=== PATIENT | male | born 1940 | race Asian ===

== ENCOUNTER 2016-04-30 14:11 | Observation (INO) | payer OTHER ==
[2016-04-30 14:25] VITALS: BMI 24.3
[2016-04-30] MEDS ORDERED: SODIUM CHLORIDE 1,000 ML IV STA (15:12)
[2016-04-30] MEDS ORDERED: morphine CARPU-JECT 4 MG/1 ML DISP.SYRIN IVPUSH ONE (15:12)
[2016-04-30] MEDS ORDERED: ONDANSETRON 4 MG/2 ML VIAL IVPUSH ONE (15:12)
[2016-04-30] MEDS ORDERED: morphine CARPU-JECT 4 MG/1 ML DISP.SYRIN ONE (15:23)
[2016-04-30] MEDS ORDERED: ONDANSETRON 4 MG/2 ML VIAL ONE (15:24)
[2016-04-30 15:29] LABS: BASOPHIL 0.2 % (0-2.0); EOSINOPHIL 0.5 % (0-4.5); MCH 30.5 pg (25.7-33.7); MCHC 32.9 g/dl (32.0-35.9); MEAN CELL VOLUME 92.7 fl (80-96); MEAN PLT VOLUME 8.9 fl (7.5-11.1); NEUTROPHILS 75.6 % (42.8-82.8); PLATELET COUNT 124 K/MM3 (134-434); RDW 13.6 % (11.9-15.9); WHITE BLOOD COUNT 4.4 K/mm3 (4.0-10.0)
[2016-04-30 15:58] LABS: ALBUMIN 3.4 g/dl (3.4-5.0); ANION GAP 9 (8-16); CO2 27 mmol/L (21-32); CREATININE 1.1 mg/dL (0.7-1.3); GLUCOSE,RANDOM 103 mg/dL (74-106); SGOT/AST 19 U/L (15-37); SGPT/ALT 24 U/L (12-78)
[2016-04-30 16:00] LABS: ALK PHOS 63 U/L (45-117); BILIRUBIN,TOTAL 0.9 mg/dL (0.2-1.0); TOT PROT 6.5 g/dl (6.4-8.2)
--- NOTE | 2016-04-30 16:02 | PDOC ---
History of Present Illness - General History Source: Patient Exam Limitations: No Limitations - History of Present Illness Initial Comments: 04/30/16 16:32 The patient is a 75 year old male with significant past medical history hypertension and BPH who presents to the emergency department with abdominal pain, nausea, and vomiting for 1 day. He also reports associated diarrhea. He denies any blood vomit or bloody stool. The patient states his epigastric pain is constant and sharp in nature, localized to the mid epigastric region. This pain does not radiate. The patient denies any alleviating factors. His symptoms started last night and are getting worse. He denies any sick contacts, recent travels, or recent abx use. The patient denies any chest pain or shortness of breath. He denies dysuria, hematuria, or frequency. He denies any fevers or chills. <Clara Raya - Last Filed: 04/30/16 16:32> <Osman Dykes - Last Filed: 04/30/16 18:36> - General Chief Complaint: Nausea/Vomiting Stated Complaint: (PCP SENT) VOMITING Time Seen by Provider: 04/30/16 14:58 Past History <Clara Raya - Last Filed: 04/30/16 16:32> - Past Medical History Cardiac Disorders: Yes - Psycho/Social/Smoking Cessation Hx Anxiety: No Suicidal Ideation: No Smoking History: Never smoked Hx Alcohol Use: No Drug/Substance Use Hx: No Substance Use Type: None <Osman Dykes - Last Filed: 04/30/16 18:36> - Past Medical History Allergies/Adverse Reactions: Allergies Allergy/AdvReac Type Severity Reaction Status Date / Time No Known Allergies Allergy Verified 04/30/16 14:25 Home Medications: Ambulatory Orders Dexlansoprazole [Dexilant] 60 mg PO DAILY 04/30/16 Review of Systems - Review of Systems Able to Perform ROS?: Yes Comments:: 04/30/16 16:32 GENERAL/CONSTITUTIONAL: No fever or chills. No weakness. HEAD, EYES, EARS, NOSE AND THROAT: No change in vision. No ear pain or discharge. No sore throat. CARDIOVASCULAR: No chest pain or shortness of breath. RESPIRATORY: No cough, wheezing, or hemoptysis. GASTROINTESTINAL: +Nausea, +vomiting, +diarrhea. No constipation. GENITOURINARY: No dysuria, frequency, or change in urination. MUSCULOSKELETAL: No joint or muscle swelling or pain. No neck or back pain. SKIN: No rash NEUROLOGIC: No headache, vertigo, loss of consciousness, or change in strength/ sensation. ENDOCRINE: No increased thirst. No abnormal weight change. HEMATOLOGIC/LYMPHATIC: No anemia, easy bleeding, or history of blood clots. ALLERGIC/IMMUNOLOGIC: No hives or skin allergy. <ElverClara - Last Filed: 04/30/16 16:32> *Physical Exam - Vital Signs Last Vital Signs Temp Pulse Resp BP Pulse Ox 97.7 F 65 20 125/75 97 04/30/16 14:21 04/30/16 14:21 04/30/16 14:21 04/30/16 14:21 04/30/16 14:21 - Physical Exam Comments: 04/30/16 16:32 GENERAL: Awake, alert, and fully oriented, in no acute distress HEAD: No signs of trauma EYES: PERRLA, EOMI, sclera anicteric, conjunctiva clear ENT: Auricles normal inspection, hearing grossly normal, nares patent, oropharynx clear without exudates. Moist mucosa NECK: Normal ROM, supple, no lymphadenopathy, JVD, or masses LUNGS: Breath sounds equal, clear to auscultation bilaterally. No wheezes, and no crackles HEART: Regular rate and rhythm, normal S1 and S2, no murmurs, rubs or gallops ABDOMEN: +Tenderness to palpation in the epigastric region, no guarding, no rebound. Soft, normoactive bowel sounds. No masses EXTREMITIES: Normal range of motion, no edema. No clubbing or cyanosis. No cords, erythema, or tenderness NEUROLOGICAL: Cranial nerves II through XII grossly intact. Normal speech, normal gait SKIN: Warm, Dry, normal turgor, no rashes or lesions noted. <ElverClara - Last Filed: 04/30/16 16:32> - Vital Signs Last Vital Signs Temp Pulse Resp BP Pulse Ox 97.7 F 65 20 125/75 97 04/30/16 14:21 04/30/16 14:21 04/30/16 14:21 04/30/16 14:21 04/30/16 14:21 <Osman Dykes - Last Filed: 04/30/16 18:36> ED Treatment Course - LABORATORY CBC & Chemistry Diagram: 04/30/16 15:00 04/30/16 15:00 - ADDITIONAL ORDERS Additional order review: Laboratory Results 04/30/16 04/30/16 15:00 15:00 INR 1.87 H Sodium 136 Potassium 4.0 Chloride 100 Carbon Dioxide 27 Anion Gap 9 BUN 22 H Creatinine 1.1 Creat Clearance w eGFR > 60 Random Glucose 103 Calcium 8.0 L Total Bilirubin 0.9 AST 19 ALT 24 Alkaline Phosphatase 63 Total Protein 6.5 Albumin 3.4 Lipase 67 L 04/30/16 15:00 RBC 4.63 MCV 92.7 MCHC 32.9 RDW 13.6 MPV 8.9 Neutrophils % 75.6 Lymphocytes % 14.0 Monocytes % 9.7 Eosinophils % 0.5 Basophils % 0.2 - Medications Given in the ED: ED Medications Discontinued Medications Generic Name Dose Route Start Last Admin Trade Name Freq PRN Reason Stop Dose Admin Sodium Chloride 1,000 mls @ 1,000 mls/hr 04/30/16 15:12 04/30/16 15:32 Normal Saline - IV 04/30/16 16:11 1,000 mls/hr ASDIR STA Administration Morphine Sulfate 4 mg 04/30/16 15:12 04/30/16 15:32 Morphine Injection - IVPUSH 04/30/16 15:13 4 mg ONCE ONE Administration Ondansetron HCl 8 mg 04/30/16 15:12 04/30/16 15:32 Zofran Injection IVPUSH 04/30/16 15:13 8 mg ONCE ONE Administration <Clara Raya - Last Filed: 04/30/16 16:32> - LABORATORY CBC & Chemistry Diagram: 04/30/16 15:00 04/30/16 15:00 - ADDITIONAL ORDERS Additional order review: 04/30/16 15:00 RBC 4.63 MCV 92.7 MCHC 32.9 RDW 13.6 MPV 8.9 Neutrophils % 75.6 Lymphocytes % 14.0 Monocytes % 9.7 Eosinophils % 0.5 Basophils % 0.2 - Medications Given in the ED: ED Medications Discontinued Medications Generic Name Dose Route Start Last Admin Trade Name Freq PRN Reason Stop Dose Admin Morphine Sulfate 4 mg 04/30/16 15:12 04/30/16 15:32 Morphine Injection - IVPUSH 02/01/17 15:13 4 mg ONCE ONE Administration Ondansetron HCl 8 mg 04/30/16 15:12 04/30/16 15:32 Zofran Injection IVPUSH 04/30/16 15:13 8 mg ONCE ONE Administration <Osman Dykes - Last Filed: 04/30/16 18:36> *DC/Admit/Observation/Transfer - Attestations Scribe Attestion: 04/30/16 16:32 Documentation prepared by Clara Raya, acting as biomedical specialist for Osman Dykes MD. <Clara Raya - Last Filed: 04/30/16 16:32> - Discharge Dispostion Admit: Yes - Attestations Physician Attestion: 04/30/16 15:59 I, Dr. Osman Dykes, attest that this document has been prepared under my direction and personally reviewed by me in its entirety. I further attest, that it accurately reflects all work, treatment, procedures and medical decision -making performed by me. <Osman Dykes - Last Filed: 04/30/16 18:36> Diagnosis at time of Disposition: Ileus Intractable vomiting Qualifiers: Vomiting type: unspecified Nausea presence: with nausea Qualified Code(s): R11.2 - Nausea with vomiting, unspecified - Referrals Referrals: Arvind Groves [Primary Care Provider] -
[2016-04-30 16:09] LABS: INR 1.87 (0.82-1.09); PROTHROMBIN TIME (PATIENT) 20.8 SEC (9.98-11.88)
[2016-04-30 17:24] LABS: URINE APPEARANCE CLEAR; URINE BILIRUBIN NEGATIVE (NEGATIVE); URINE COLOR LTYELLOW; URINE GLUCOSE (UA) NEGATIVE (NEGATIVE); URINE KETONE NEGATIVE (NEGATIVE); URINE LEUK ESTERASE NEGATIVE (NEGATIVE); URINE NITRITE NEGATIVE (NEGATIVE); URINE PROTEIN NEGATIVE (NEGATIVE); URINE UROBILINOGEN NEGATIVE E.U./dl (0.2-1.0)
[2016-04-30 17:33] LABS: URINE BLOOD 2+ (NEGATIVE)
[2016-04-30 17:35] LABS: URINE HYALINE CAST 1 /lpf; URINE MUCUS RARE; URINE RBC 2 /hpf (0-3); URINE WBC <1 /hpf (3-5)
--- NOTE | 2016-04-30 19:32 | PN ---
<Nevaeh Moreno - Last Filed: 04/30/16 23:06> Teaching Attending Note ATTENDING PHYSICIAN STATEMENT I saw and evaluated the patient. I reviewed the resident's note and discussed the case with the resident. I agree with the resident's findings and plan as documented. SUBJECTIVE: 75 yo M sent by his PCP for diffuse abdominal pain, and N/V/D for 1 day. Patient states having 4 episodes of non-projectile, non-bloody vomit that has been getting progressively worse. Patient reports his stool was reddish in color but he was unsure whether it contained blood. He denies any alleviating factors. Patient notes having similar symptoms previously and being diagnosed with acid reflux which was treated with Dexilant. He reports associated chills and diaphoresis. He denies fever and rigors. Patient had an endoscopy 1 month ago and a colonoscopy 2 years ago, both of which were negative. Patient has a history of H pylori which was treated 2 years ago. Denies: sick contacts, new food, recent travel PMHx: HTN, Afib and BPH PSH:Bladder infection SH:None OBJECTIVE: Last Vital Signs Temp Pulse Resp BP Pulse Ox 97.7 F 65 20 125/75 97 04/30/16 14:21 04/30/16 14:21 04/30/16 14:21 04/30/16 14:21 04/30/16 14:21 GENERAL: Awake, alert, and fully oriented, in no acute distress HEENT: Atraumatic. PERRLA, EOMI. Moist mucosa. No JVD LUNGS: No distress, speaks full sentences, clear to auscultation bilaterally HEART: Regular rate and rhythm, normal S1 and S2, no murmurs, rubs or gallops, peripheral pulses normal and equal bilaterally. ABDOMEN: Soft, Severe tenderness in epigastric region with guarding. Tenderness in LLQ. Hyperactive bowel sounds. No hepatosplenomegaly appreciated. No rebound. No masses EXTREMITIES: Normal inspection, Normal range of motion, no edema. No clubbing or cyanosis. NEUROLOGICAL: Cranial nerves II through XII grossly intact. Normal speech, normal gait, no focal sensorimotor deficits SKIN: Warm, Dry, normal turgor, no rashes or lesions noted. CBCD WBC 4.4 K/mm3 (4.0-10.0) 04/30/16 15:00 RBC 4.63 M/mm3 (4.00-5.60) 04/30/16 15:00 Hgb 14.1 GM/dL (11.7-16.9) 04/30/16 15:00 Hct 42.9 % (35.4-49) 04/30/16 15:00 MCV 92.7 fl (80-96) 04/30/16 15:00 MCHC 32.9 g/dl (32.0-35.9) 04/30/16 15:00 RDW 13.6 % (11.9-15.9) 04/30/16 15:00 Plt Count 124 K/MM3 (134-434) L 04/30/16 15:00 MPV 8.9 fl (7.5-11.1) 04/30/16 15:00 CMP Sodium 136 mmol/L (136-145) 04/30/16 15:00 Potassium 4.0 mmol/L (3.5-5.1) 04/30/16 15:00 Chloride 100 mmol/L (98-107) 04/30/16 15:00 Carbon Dioxide 27 mmol/L (21-32) 04/30/16 15:00 Anion Gap 9 (8-16) 04/30/16 15:00 BUN 22 mg/dL (7-18) H 04/30/16 15:00 Creatinine 1.1 mg/dL (0.7-1.3) 04/30/16 15:00 Creat Clearance w eGFR > 60 (>60) 04/30/16 15:00 Calcium 8.0 mg/dL (8.5-10.1) L 04/30/16 15:00 Total Bilirubin 0.9 mg/dL (0.2-1.0) 04/30/16 15:00 AST 19 U/L (15-37) 04/30/16 15:00 ALT 24 U/L (12-78) 04/30/16 15:00 Alkaline Phosphatase 63 U/L (45-117) 04/30/16 15:00 Total Protein 6.5 g/dl (6.4-8.2) 04/30/16 15:00 Albumin 3.4 g/dl (3.4-5.0) 04/30/16 15:00 Chest X-Ray Impression: Mild cardiomegaly and bilateral increased interstitial markings without evidence of acute lung disease. Abdominal X-Ray Impression: Air-filled nondilated small bowel loops mainly in right side of the abdomen with multiple short air-filled levels suggestive of ileus. Cannot rule out early small bowel obstruction. Correlate clinically and follow-up is needed. ASSESSMENT AND PLAN: 75 yo M with a PMHx of HTN, Afib and BPH admitted for ileus rule out small bowel obstruction. 1.) Ileus rule out small bowel obstruction -NPO -IVF NS -Protonix 40 mg daily -Reglan PRN -Follow stool studies -Tylenol IV 1000ml PRN -Repeat CBC and BMP in AM -GI consult 2.) BPH -Continue home meds Finasteride and Flomax 3.) Afib -Continue xarelto 4.) HTN -Hydrochlorothiazide -Diovan DVT ppx -SCDs -Pt already on long-term anticoagulation therapy for Afib Documentation prepared by Nevaeh Moreno, acting as medical technologist for Ninoska Franz M.D. <Ninoska Franz - Last Filed: 05/03/16 00:07> Teaching Attending Note Name of Resident: Monika Mohan
[2016-04-30] MEDS ORDERED: METOCLOPRAMIDE HCL INJECTION 10 MG/2 ML VIAL IVPB PRN (20:19)
--- NOTE | 2016-04-30 20:19 | HP ---
CHIEF COMPLAINT: Abdominal pain PCP: Dr. 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 A/c to the patient, he developed abdominal pain suddenly, progressively getting worse, located diffusely, 4-5/10 in intensity, cramping in nature, non radiating, associated with nausea, vomiting and diarrhoea. Had 3 episodes of vomiting, non projectile , containing mainly food particles. Had 4 episodes of watery diarrhoea, unsure if it was mixed with blood, fowl smelling. Denies intake of food in the restaurant recently or changes in diet, no sick contacts. Also reports to have chills, sweating but no fever or rigors. Complaints of frontal headache, 4/10 in intensity. Denies blurring of vision, loss of consciousness. Patient recently visited his primary doctor and was diagnosed to have Acid reflux and was given Delxansoprazole. Denies chest pain, sob, cough, palpitation. Apparently, patient had colonoscopy done 2 yrs ago and endoscopy procedure done a month ago which was benign as per the patient. Lives in senior residential living. ER course was notable for: (1) CBC, CMP, UA, Stool exam (2) CXR, Abd-xray Ileus (3) IV fluids, Morphine, Zofran Recent Travel: None PAST MEDICAL HISTORY: Hypertension, Atrial fibrillation, BPH, Acid reflux, H. pylori PAST SURGICAL HISTORY: Bladder surgery for infection (?for BPH) Social History: Smoking:Never smoked Alcohol: Never took alcohol Drugs: No illicit drug use Family History: Unknown Allergies No Known Allergies Allergy (Verified 04/30/16 14:25) HOME MEDICATIONS: Confirmed with the patient. Patient takes: 1. Xarelto 20mg Daily 2. Tamsulocin 0.4mg Daily 3. Finasteride 5mg Daily 4. Valsartan/HCTZ 160-25mg Daily 5. Dexlansoprazole 60mg Daily. REVIEW OF SYSTEMS CONSTITUTIONAL: Absent: fever, chills, diaphoresis, generalized weakness, malaise, loss of appetite, weight change HEENT: Absent: rhinorrhea, nasal congestion, throat pain, throat swelling, difficulty swallowing, mouth swelling, ear pain, eye pain, visual changes CARDIOVASCULAR: Absent: chest pain, syncope, palpitations, irregular heart rate, lightheadedness , peripheral edema RESPIRATORY: Absent: cough, shortness of breath, dyspnea with exertion, orthopnea, wheezing, stridor, hemoptysis GASTROINTESTINAL: Present: abdominal pain, nausea, vomiting, diarrhea Absent: constipation, melena, hematochezia GENITOURINARY: Absent: dysuria, frequency, urgency, hesitancy, hematuria, flank pain, genital pain MUSCULOSKELETAL: Absent: myalgia, arthralgia, joint swelling, back pain, neck pain SKIN: Absent: rash, itching, pallor HEMATOLOGIC/IMMUNOLOGIC: Absent: easy bleeding, easy bruising, lymphadenopathy, frequent infections ENDOCRINE: Absent: unexplained weight gain, unexplained weight loss, heat intolerance, cold intolerance NEUROLOGIC: Absent: headache, focal weakness or paresthesias, dizziness, unsteady gait, seizure, mental status changes, bladder or bowel incontinence PSYCHIATRIC: Absent: anxiety, depression, suicidal or homicidal ideation, hallucinations. PHYSICAL EXAMINATION Vital Signs - 24 hr 04/30/16 14:21 Temperature 97.7 F Pulse Rate 65 Respiratory 20 Rate Blood Pressure 125/75 O2 Sat by Pulse 97 Oximetry (%) GENERAL: Elderly male lying comfortably in bed ,Awake, alert, and fully oriented , in no acute distress. HEAD: Normal with no signs of trauma. EYES: EOM intact, no pallor or icterus EARS, NOSE, THROAT: Ears normal. Moist mucous membranes. NECK: Normal range of motion, supple without lymphadenopathy, JVD, or masses. LUNGS: Breath sounds equal, clear to auscultation bilaterally. No wheezes, and no crackles. No accessory muscle use. HEART: Regular rate and rhythm, normal S1 and S2 without murmur, rub or gallop. ABDOMEN: Soft, tenderness more localized to epigastric, left upper quadrant and suprapubic area, not distended, normoactive bowel sounds, no guarding, no rebound, no masses. Hepatomegaly or splenomegaly couldn't be appreciated. MUSCULOSKELETAL: Normal range of motion at all joints. No bony deformities or tenderness. No CVA tenderness. UPPER EXTREMITIES: 2+ pulses, warm, well-perfused. No cyanosis. No clubbing. Cap refill <2 seconds. No peripheral edema. LOWER EXTREMITIES: 2+ pulses, warm, well-perfused. No calf tenderness. No peripheral edema. NEUROLOGICAL: Cranial nerves II-XII intact. Normal speech. Gait not observed. PSYCHIATRIC: Cooperative. Good eye contact. Appropriate mood and affect. SKIN: Warm, dry, normal turgor, no rashes or lesions noted. Laboratory Results - last 24 hr 04/30/16 04/30/16 04/30/16 15:00 15:00 15:00 WBC 4.4 RBC 4.63 Hgb 14.1 Hct 42.9 MCV 92.7 MCHC 32.9 RDW 13.6 Plt Count 124 L MPV 8.9 Neutrophils % 75.6 Lymphocytes % 14.0 Monocytes % 9.7 Eosinophils % 0.5 Basophils % 0.2 INR 1.87 H Sodium 136 Potassium 4.0 Chloride 100 Carbon Dioxide 27 Anion Gap 9 BUN 22 H Creatinine 1.1 Creat Clearance w eGFR > 60 Random Glucose 103 Calcium 8.0 L Total Bilirubin 0.9 AST 19 ALT 24 Alkaline Phosphatase 63 Total Protein 6.5 Albumin 3.4 Lipase 67 L Urine Color Urine Appearance Urine pH Ur Specific [place] Urine Protein Urine Glucose (UA) Urine Ketones Urine Blood Urine Nitrite Urine Bilirubin Urine Urobilinogen Ur Leukocyte Esterase Urine RBC Urine WBC Hyaline Casts Urine Mucus 04/30/16 17:10 WBC RBC Hgb Hct MCV MCHC RDW Plt Count MPV Neutrophils % Lymphocytes % Monocytes % Eosinophils % Basophils % INR Sodium Potassium Chloride Carbon Dioxide Anion Gap BUN Creatinine Creat Clearance w eGFR Random Glucose Calcium Total Bilirubin AST ALT Alkaline Phosphatase Total Protein Albumin Lipase Urine Color Ltyellow Urine Appearance Clear Urine pH 6.0 Ur Specific [place] 1.009 Urine Protein Negative Urine Glucose (UA) Negative Urine Ketones Negative Urine Blood 2+ H Urine Nitrite Negative Urine Bilirubin Negative Urine Urobilinogen Negative Ur Leukocyte Esterase Negative Urine RBC 2 Urine WBC <1 Hyaline Casts 1 Urine Mucus Rare 04/30/2016 Abdominal X-ray- Air filled non dilated small bowel loops mainly in right side of the abdomen with multiple short air-fluid levels suggestive of ileus. Cannot rule out early small bowel obstruction. 04/30/2016 CXR- Mild cardiomegaly and bilateral increased interstitial markings without evidence of acute lung disease. ASSESSMENT/PLAN: 75 year old Khmer speaking male with significant PMHx of Hypertension, BPH, Atrial fibrillation, acid reflux, H.pylori presented to the ED accompanied with his with the chief complaint of abdominal pain x 1 day. Admitted in Med-surg # Abdominal pain: Likely Viral gastroenteritis vs Ileus Duration of 1 day associated with nausea, 3 episodes of vomiting, 4 episodes of diarrhoea Afebrile, hemodyanamically stable on arrival. Abd xray showed Ileus, cannot rule out early small bowel obstruction. Given the h/o atrial fibrillation and age, d/d would be ischemic colitis but less likely In the ED, patient was given IV fluids, Morphine and Zofran NPO except for meds IV NS @ 75mls/hr IV Metoclopromide 10mg PRN Opiate avoided as it may worsen ileus. IV tylenol PRN Stool exam for C. diff, Salmonella/shigella, campylobacter, Yersinia, Vibrio , E.coli pending Surgical consult placed # H/o H.pylori Endoscopy done a month ago, would consider getting reports from doctors office tomorrow. On Dexlansoprazole. # Atrial Fibrillation- rate controlled Continue Xarelto 20mg PO Daily INR-1.87 # Thrombocytopenia Platelet count 124 Etiology unknown # BPH No urinary symptoms at this time Continue Tamsulocin 0.4mg Daily Finasteride 5mg Daily # FEN IV NS @ 75mls/hr Electrolytes to be repeated tomorrow Corrected calcium 8.48 NPO except PO meds # Prophylaxis For DVT- Already on Xarelto, now on SCD's For GI- On PPI (Dexlansoprazole) # Code Status- Full code # Dispo- Admitted in Med-Surg. Duration of stay unknown Illness, Investigation and plan of care explained to the patient. He verbalized understanding. Case seen and discussed with Dr. Franz. Visit type - Emergency Visit Emergency Visit: Yes ED Registration Date: 04/30/16 Care time: The patient presented to the Emergency Department on the above date and was hospitalized for further evaluation of their emergent condition. - New Patient This patient is new to me today: Yes Date on this admission: 04/30/16 - Critical Care Critical Care patient: No
[2016-04-30] MEDS ORDERED: TAMSULOSIN HCL 0.4 MG CAP.ER.24H (FP) PO ONE (20:25)
[2016-04-30] MEDS ORDERED: SODIUM CHLORIDE 1,000 ML IV SCH (20:30)
[2016-04-30] MEDS ORDERED: ACETAMINOPHEN 1000 MG/100 ML VIAL (NON FORMULARY) IVPB PRN (20:58)
[2016-05-01 07:10] LABS: BASOPHIL 0.3 % (0-2.0); EOSINOPHIL 1.8 % (0-4.5); MCH 31.1 pg (25.7-33.7); MCHC 33.8 g/dl (32.0-35.9); MEAN PLT VOLUME 8.8 fl (7.5-11.1); NEUTROPHILS 55.6 % (42.8-82.8); PLATELET COUNT 110 K/MM3 (134-434); RDW 13.7 % (11.9-15.9)
[2016-05-01 07:17] LABS: INR 2.52 (0.82-1.09); PROTHROMBIN TIME (PATIENT) 28.3 SEC (9.98-11.88)
[2016-05-01 07:40] LABS: ALBUMIN 2.8 g/dl (3.4-5.0); ANION GAP 9 (8-16); BILIRUBIN,TOTAL 0.7 mg/dL (0.2-1.0); CALCIUM 7.5 mg/dL (8.5-10.1); CO2 28 mmol/L (21-32); CREATININE 1.1 mg/dL (0.7-1.3); GLUCOSE,RANDOM 78 mg/dL (74-106); SGOT/AST 14 U/L (15-37); SGPT/ALT 18 U/L (12-78); TOT PROT 5.5 g/dl (6.4-8.2)
[2016-05-01 07:41] LABS: ALK PHOS 53 U/L (45-117)
[2016-05-01] MEDS ORDERED: TAMSULOSIN HCL 0.4 MG CAP.ER.24H (FP) PO SCH (08:30)
[2016-05-01] MEDS ORDERED: HYDROCHLOROTHIAZIDE 25 MG TABLET (FP) PO SCH (10:00)
[2016-05-01] MEDS ORDERED: VALSARTAN 160 MG TABLET (UD) PO SCH (10:00)
[2016-05-01] MEDS ORDERED: RIVAROXABAN 20 MG TABLET PO SCH (10:00)
[2016-05-01] MEDS ORDERED: PANTOPRAZOLE 40 MG TABLET (FP) PO SCH (10:00)
[2016-05-01] MEDS ORDERED: FINASTERIDE 5 MG TABLET (FP) PO SCH (10:00)
[2016-05-01] MEDS ORDERED: PATIENT'S OWN MEDICATION (NON-FORMULARY) (Dexlansoprazole [Dexilant] 60 MG) PO SCH (10:00)
--- NOTE | 2016-05-01 11:10 | CON.GI ---
Consult Reason for Consultation:: Ileus on abdominal x-ray, cannot r/o early SBO - History of Present Illness Chief Complaint: ABDOMINAL PAIN History of Present Illness: 75 year old male presented with abdominal pain that started 2 days ago in afternoon, 5/10, lasting all day, diffuse, worse in right upper quadrant and epigastric region. Pt aslo complained of vomiting 4 times 2 days ago, non bloody , non bilious, non projectile vomitus. Pt also complained of diarrhea 5 times 2 days ago, brown, unknown if there is any blood in the stool. Last bowel movement was today if was soft but was not watery. Pt patient is no longer nauseous, his appetite is ok and said the abdominal pain is still there but improved slightly . Pt also complained of headache yesterday which has subsided. no sick contact, no one else around him is sick. no change in his food and diet. No recent travel, no recent antibiotic use. Pt has a h/of GERD and take PPI. Pt has these episodes of abdominal pain and diarrhea about every month for the last 8 months but was worse 2 days ago so he came to the hospital. Pt has a colonoscopy 2 years and an upper endoscopy [address] Chandler. Pt said the colonoscopy and the upper endoscopy were negative, but we are still waiting the official result from Dr Chandler office. Pt denies fever, chills, weight loss, chest pain, dizziness, weakness. 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 - History Source History Provided By: Patient Limitations to Obtaining History: Language Barrier - Past Medical History Cardio/Vascular: Yes: AFIB, HTN Gastrointestinal: Yes: GERD, Other Renal/: Yes: BPH - Alcohol/Substance Use Hx Alcohol Use: No - Smoking History Smoking history: Never smoked - Social History Usual Living Arrangement: With Spouse Home Medications - Allergies Allergies/Adverse Reactions: Allergies Allergy/AdvReac Type Severity Reaction Status Date / Time No Known Allergies Allergy Verified 04/30/16 14:25 - Home Medications Home Medications: Ambulatory Orders Dexlansoprazole [Dexilant] 60 mg PO DAILY 04/30/16 [place]-3S/Dha/Epa/Fish Oil/D3 [Fish Oil + D3 Softgel] 1 05/01/16 Rivaroxaban [Xarelto -] 20 mg PO DAILY 05/01/16 Tamsulosin HCl 0.4 mg PO DAILY 05/01/16 Valsartan/Hydrochlorothiazide [Valsartan-Hctz 160-25 mg Tab] DAILY 05/01/16 Family Disease History - Family Disease History Family History: Denies Review of Systems - Review of Systems Constitutional: reports: No Symptoms Eyes: reports: No Symptoms HENT: reports: No Symptoms Neck: reports: No Symptoms Cardiovascular: reports: No Symptoms Physical Exam-GI Vital Signs: Vital Signs Temperature 98 F 05/01/16 05:38 Pulse Rate 52 L 05/01/16 05:38 Respiratory Rate 20 05/01/16 05:38 Blood Pressure 105/55 05/01/16 05:38 O2 Sat by Pulse Oximetry (%) 97 05/01/16 02:56 97.7, 130/61, 58, 96% , 16 Constitutional: Yes: No Distress, Calm Eyes: Yes: EOM Intact HENT: Yes: Atraumatic, Normocephalic Cardiovascular: Yes: Regular Rate and Rhythm, S1, S2 Respiratory: Yes: Regular, CTA Bilaterally Gastrointestinal Inspection: Yes: Scars ...Auscultate: Yes: Hyperactive Bowel Sounds ...Palpate: Yes: Soft, Tenderness, Epigastium ...Percussion: Yes: Tympanitic ...Rectal Exam: Yes: Hemorrhoids/External, Sphincter Tone Normal, Other (pendig stool guaic) Extremities: Yes: WNL Edema: No Peripheral Pulses WNL: Yes Integumentary: Yes: WNL Neurological: Yes: Alert, Oriented ...Motor Strength: WNL Psychiatric: Yes: Alert, Oriented Labs: CBC, BMP 05/01/16 06:00 05/01/16 06:00 INR, PTT INR 2.52 (0.82-1.09) H D 05/01/16 06:00 Assessment/Plan 75 year old with mild abdominal pain, n/v which has resolved, diarrhea which is improving. It sound like like gastroenteritis but still need to rule out Ileus and early small bowel obstruction. Repeat abdominal Flat and upright Clear liquid diet if tolerated and no worsening in Xray abdomen, no vomiting Advance diet as tolerated for dinner. Antiemetic if necessary Stool OB sent, pending result Pending stool studies result Awaiting result from last colonoscopy and upper endoscopy from Dr Chandler office ( Office #[phone], fax # [phone]) PCP Dr Groves ( office # [phone])
--- NOTE | 2016-05-01 12:56 | PN ---
Teaching Attending Note Name of Resident: Missael Nettles ATTENDING PHYSICIAN STATEMENT I saw and evaluated the patient. I reviewed the resident's note and discussed the case with the resident. I agree with the resident's findings and plan as documented. 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 Groves and discussed), sent to ER because he was guaiac positive Similar episode about 8 months ago AXR in ER revealed ? ileus vs. early PSBO Currently asymptomatic, started on clears for lunch Had recent EGD with his pin inserter regulator Dr. Chandler (unrevealing, h. pylori eradicated as he was treated 2 years ago) and 2 year follow-up study advised given finding of intestinal metaplasia on biopsies Had Colonoscopy [address] Chandler that revealed a subcentimeter tubular adenoma No travel, fevers/chills, abx use, sick contacts change in dietary patterns OBJECTIVE: Tmax: 99 P: 51 BP: 130/61 Anicteric Hrt: bradycardic rate, irreg rhythm Lungs: CTA Abd: mid abd wall scar (from removal of abd wall growth, OK per patient), non- distended, + normoactive BS, no tympany Ext: No LE edema KAYLA: external skin tags, light brown stool, guaiac negative On labs: Elevated INR, thrombocytopenia, monocytes elevated C. Diff neg Stool Cx: pending On imaging: AXR: non-obstructive pattern ASSESSMENT: Resolved N/V/D/Abdominal pain: suspect self-limited gastroenteritis Plan: Advance to full liquids then low residue in AM if tolerating Stool culture pending. Given smiliar episode in recent past, stool for O&P would be reasonable as well. If diarrhea recurs check stool for norovirus + coagulopathy. ? if secondary to xarelto or alternate pathology. Same for thrombocytopenia. Unclear if known issue / chronic or part of current issues. W /U per primary team. Consider heme eval. Consider checking abdominal US to asssess for cirrhotic appearing liver (no varices / portal gastropathy noted on recent EGD) If tolerating PO, OK for D/C home with follow-up with PMD as well as his pin inserter regulator Dr. Alton Chandler in [place] Previous EGD/Colonoscopy reports left in front of physical chart
[2016-05-01 14:24] VITALS: BP 125/74; PULSE 54; TEMP 98.2
--- NOTE | 2016-05-01 16:52 | DS ---
Physical Exam: SUBJECTIVE: Patient seen and examined. He is feeling good. No more abdominal pain, N/V, diarrhea, constipation, fever, chills, melena. OBJECTIVE: Vital Signs Period Temp Pulse Resp BP Sys/Becker Pulse Ox Last 24 Hr 97.8 F-99 F 52-74 18-20 105-140/55-74 97-100 PHYSICAL EXAM GENERAL: The patient is awake, alert, and fully oriented, in no acute distress. HEAD: Normal with no signs of trauma. EYES: extraocular movements intact, sclera anicteric, conjunctiva clear. ENT: Ears normal, nares patent, oropharynx clear without exudates, moist mucous membranes. NECK: Trachea midline, supple. LUNGS: Breath sounds equal, clear to auscultation bilaterally, no wheezes, no crackles, no accessory muscle use. HEART: irregular rate and rhythm, S1, S2 without murmur, rub or gallop. ABDOMEN: Soft, nontender, nondistended, normoactive bowel sounds, no guarding, no rebound, no hepatosplenomegaly appreciated. EXTREMITIES: warm, no edema. NEUROLOGICAL: Normal speech, gait not observed. PSYCH: Normal mood, normal affect. SKIN: Warm, dry, normal turgor, no rashes, abdominal scar. LABS Laboratory Results - last 24 hr 05/01/16 05/01/16 05/01/16 06:00 06:00 06:00 WBC 4.0 RBC 4.16 Hgb 12.9 Hct 38.3 MCV 92.0 MCHC 33.8 RDW 13.7 Plt Count 110 L MPV 8.8 Neutrophils % 55.6 D Lymphocytes % 29.2 D Monocytes % 13.1 H Eosinophils % 1.8 D Basophils % 0.3 INR 2.52 H D Sodium 141 Potassium 3.7 Chloride 104 Carbon Dioxide 28 Anion Gap 9 BUN 17 D Creatinine 1.1 Creat Clearance w eGFR > 60 Random Glucose 78 D Calcium 7.5 L Total Bilirubin 0.7 D AST 14 L D ALT 18 D Alkaline Phosphatase 53 Total Protein 5.5 L Albumin 2.8 L Stool Occult Blood 05/01/16 05/01/16 08:30 11:00 WBC RBC Hgb Hct MCV MCHC RDW Plt Count MPV Neutrophils % Lymphocytes % Monocytes % Eosinophils % Basophils % INR Sodium Potassium Chloride Carbon Dioxide Anion Gap BUN Creatinine Creat Clearance w eGFR Random Glucose Calcium Total Bilirubin AST ALT Alkaline Phosphatase Total Protein Albumin Stool Occult Blood Positive Negative HOSPITAL COURSE: Date of Admission:04/30/16 Date of Discharge: 05/01/16 Minutes to complete discharge: 50 Discharge Summary Reason For Visit: ILEUS; INTRACTABLE VOMITING Current Active Problems Ileus (Acute) Intractable vomiting (Acute) Hospital Course: 75 year old Turkish speaking male presented to the ED accompanied with his with the chief complaint of abdominal pain x 1 day. A/c to the patient, he developed abdominal pain suddenly, progressively getting worse, located diffusely, 4-5/10 in intensity, cramping in nature, non radiating, associated with nausea, vomiting and diarrhea. Had 3 episodes of vomiting, non projectile, containing mainly food particles, non-bloody. Had 4 episodes of watery diarrhea , unsure if it was mixed with blood, fowl smelling. Denies intake of food in the restaurant recently or changes in diet, no sick contacts. Also reports to have chills, sweating but no fever or rigors. He had similar episode 8 months ago. No travel, fevers/chills, abx use, sick contacts change in dietary patterns. He also complaints of frontal headache, 4/10 in intensity. Denies blurry vision, loss of consciousness. Patient recently visited his primary doctor and was diagnosed to have Acid reflux and was given Delxansoprazole. He was also found to be Guaiac positive Denies chest pain, sob, cough, palpitation. Pt has recent egd 04/10/16 which showed chronic Atrophic gastritis, Eradicated H. Pilori, small hiatal hernia, reactive gastropathic change in a background of chronic gastritis with intestinal metaplasia. Colonoscopy in 09/13/2014 showed a single flat polyp in transverse colon that was removed by cold biopsy polypectomy and external hemorrhoids in anus. Pathology showed one tubular adenoma, no high grade dysplasia, no malignancy. Hospital course: We diagnosed the pt with viral gastroenteritis: He was given IVF, Zofran, Tylenol. We ordered abdominal x-ray, it revealed ileus, SBO couldn't be r/o. The repeated one showed no acute pathology. First FOBT was positive, next one neg. We ordered stool culture for C. diff, Salmonella/shigella, campylobacter, Yersinia, Vibrio, E.coli, ova&parasites. We advanced to full liquids then to soft diet. He tolerated that well. He didn' t have more abdominal pain, N/V, fever, chills, diarrhea today. He had 1 BM in the hospital. His laboratory results revealed low platelets and increased INR. We don't know the etiology or possible correlation to Xarelto. We also ordered abdominal US to r/o liver cirrhosis. the results were negative for that. We recommend to see his PCP in next 2-3 days. We also referred him to see Oncologist and his GI specialist as outpatient. Translation by [employer] [id number]. Condition: Stable - Instructions Diet, Activity, Other Instructions: Please see your PCP in 2-3 days. We recommend that you have laboratory tests done:CBC, BMP, PT/INR, platelets. Please see Oncologist in a week because you have low plateletes and elevated PT/ INR. And follow up with your GI doctor in next 2-3 weeks. If you have abdominal pain, bleeding, dizziness, loss of consciousness, severe headache, chest pain come to emergency Room as soon as possible. Referrals: Arvind Groves [Primary Care Provider] - (2-3 days) Eloise Curry MD [Staff Physician] - 1 Week () Disposition: HOME - Home Medications Comprehensive Discharge Medication List: Ambulatory Orders Dexlansoprazole [Dexilant] 60 mg PO DAILY 04/30/16 Stout-3S/Dha/Epa/Fish Oil/D3 [Fish Oil + D3 Softgel] 1 05/01/16 Rivaroxaban [Xarelto -] 20 mg PO DAILY 05/01/16 Tamsulosin HCl 0.4 mg PO DAILY 05/01/16 Valsartan/Hydrochlorothiazide [Valsartan-Hctz 160-25 mg Tab] DAILY 05/01/16 Problem List - Problems (1) Ileus Code(s): K56.7 - ILEUS, UNSPECIFIED (2) Vomiting Code(s): R11.10 - VOMITING, UNSPECIFIED (3) Viral gastroenteritis Code(s): A08.4 - VIRAL INTESTINAL INFECTION, UNSPECIFIED (4) Diarrhea Code(s): R19.7 - DIARRHEA, UNSPECIFIED (5) Atrial fibrillation Code(s): I48.91 - UNSPECIFIED ATRIAL FIBRILLATION (6) Thrombocytopenia Code(s): D69.6 - THROMBOCYTOPENIA, UNSPECIFIED (7) BPH (benign prostatic hyperplasia) Code(s): N40.0 - BENIGN PROSTATIC HYPERPLASIA WITHOUT LOWER URINRY TRACT SYMP This patient is new to me today: Yes Date on this admission: 05/02/16 Emergency Visit: Yes ED Registration Date: 04/30/16 Care time: The patient presented to the Emergency Department on the above date and was hospitalized for further evaluation of their emergent condition. Critical Care patient: No - Discharge Referral Referred to [facility] No
--- NOTE | 2016-05-01 17:36 | PN ---
Teaching Attending Note Name of Resident: Shanthi Daniel ATTENDING PHYSICIAN STATEMENT I saw and evaluated the patient. I reviewed the resident's note and discussed the case with the resident. I agree with the resident's findings and plan as documented. SUBJECTIVE: Patient is comfortable with no acute distress. OBJECTIVE: Vital Signs Temperature 98.2 F 05/01/16 14:21 Pulse Rate 54 L 05/01/16 14:21 Respiratory Rate 20 05/01/16 14:21 Blood Pressure 125/74 05/01/16 14:21 O2 Sat by Pulse Oximetry (%) 97 05/01/16 10:00 Abdomen: soft, NT,NR. CBCD WBC 4.0 K/mm3 (4.0-10.0) 05/01/16 06:00 RBC 4.16 M/mm3 (4.00-5.60) 05/01/16 06:00 Hgb 12.9 GM/dL (11.7-16.9) 05/01/16 06:00 Hct 38.3 % (35.4-49) 05/01/16 06:00 MCV 92.0 fl (80-96) 05/01/16 06:00 MCHC 33.8 g/dl (32.0-35.9) 05/01/16 06:00 RDW 13.7 % (11.9-15.9) 05/01/16 06:00 Plt Count 110 K/MM3 (134-434) L 05/01/16 06:00 MPV 8.8 fl (7.5-11.1) 05/01/16 06:00 CMP Sodium 141 mmol/L (136-145) 05/01/16 06:00 Potassium 3.7 mmol/L (3.5-5.1) 05/01/16 06:00 Chloride 104 mmol/L (98-107) 05/01/16 06:00 Carbon Dioxide 28 mmol/L (21-32) 05/01/16 06:00 Anion Gap 9 (8-16) 05/01/16 06:00 BUN 17 mg/dL (7-18) D 05/01/16 06:00 Creatinine 1.1 mg/dL (0.7-1.3) 05/01/16 06:00 Creat Clearance w eGFR > 60 (>60) 05/01/16 06:00 Random Glucose 78 mg/dL (74-106) D 05/01/16 06:00 Calcium 7.5 mg/dL (8.5-10.1) L 05/01/16 06:00 Total Bilirubin 0.7 mg/dL (0.2-1.0) D 05/01/16 06:00 AST 14 U/L (15-37) L D 05/01/16 06:00 ALT 18 U/L (12-78) D 05/01/16 06:00 Alkaline Phosphatase 53 U/L (45-117) 05/01/16 06:00 Total Protein 5.5 g/dl (6.4-8.2) L 05/01/16 06:00 Albumin 2.8 g/dl (3.4-5.0) L 05/01/16 06:00 Current Medications Generic Name Dose Route Start Last Admin Trade Name Freq PRN Reason Stop Dose Admin Finasteride 5 mg 05/01/16 10:00 05/01/16 09:35 Proscar - PO Not Given DAILY ARABELLA Hydrochlorothiazide 25 mg 05/01/16 10:00 05/01/16 09:35 Hctz - PO Not Given DAILY ARABELLA Sodium Chloride 1,000 mls @ 75 mls/hr 04/30/16 20:30 04/30/16 21:41 Normal Saline - IV 75 mls/hr ASDIR ARABELLA Administration Pantoprazole Sodium 40 mg 05/01/16 10:00 05/01/16 09:35 Protonix - PO 40 mg DAILY ARABELLA Administration Rivaroxaban 20 mg 05/01/16 10:00 05/01/16 09:35 Xarelto - PO Not Given DAILY ARABELLA Tamsulosin HCl 0.4 mg 05/01/16 08:30 05/01/16 08:05 Flomax - PO 0.4 mg DAILY@0830 ARABELLA Administration Valsartan 160 mg 05/01/16 10:00 05/01/16 09:35 Diovan - PO Not Given DAILY [facility] Home Medications Medication Instructions Recorded Dexlansoprazole [Dexilant] 60 mg PO DAILY 04/30/16 Gentry-3S/Dha/Epa/Fish Oil/D3 [Fish 1 05/01/16 Oil + D3 Softgel] Rivaroxaban [Xarelto -] 20 mg PO DAILY 05/01/16 Tamsulosin HCl 0.4 mg PO DAILY 05/01/16 Valsartan/Hydrochlorothiazide DAILY 05/01/16 [Valsartan-Hctz 160-25 mg Tab] ASSESSMENT AND PLAN: 75 yo M with a PMHx of HTN, Afib and BPH admitted for ileus rule out small bowel obstruction. # Acute Viral Gastroenteritis, resolved. # S/p Ileus repeat Xray of was negative of ileus , no small bowel obstruction advance diet ,patient tolerated diet without any problem follow up with GI as an outpatient # BPH Continue home meds Finasteride and Flomax # Afib on xarelto Follow PT/INR as an outpatient and also low palatelets most likely due to xarelto , US negative for ascites, follow with acquisitions assistant for further w/u. # HTN continue Hydrochlorothiazide, Allenvan
== END 2016-05-01 19:21 | disposition home or self-care (01) ==
LOC: JER 14:11 → JERBED 19:07 → J7W 22:28
PROVIDERS: ADMIT Internal Medicine; ATTEND Internal Medicine
DX: A08.4 Viral intestinal infection, unspecified (principal); K56.7 Ileus, unspecified; N40.0 Benign prostatic hyperplasia without lower urinary tract symptoms; I48.91 Unspecified atrial fibrillation; K21.9 Gastro-esophageal reflux disease without esophagitis; D69.6 Thrombocytopenia, unspecified; K44.9 Diaphragmatic hernia without obstruction or gangrene
CPT/HCPCS: 36415; 71020-TC; 74020-TC; 76700-TC; 80053; 81003; 81015; 82272; 83690; 85025; 85610; 87045; 87046; 87086; 87324; 87449; 99285-25; G0378

== ENCOUNTER 2020-10-11 10:17 | Inpatient (IN) | payer OTHER ==
[2020-10-11] MEDS ORDERED: ACETAMINOPHEN 1000 MG/100 ML VIAL (NON FORMULARY) IVPB ONE (11:16)
[2020-10-11] MEDS ORDERED: morphine CARPU-JECT 2 MG/1 ML DISP.SYRIN IVPUSH ONE (11:23)
[2020-10-11] MEDS ORDERED: morphine SULFATE 4 MG/ML VIAL ONE (11:26)
[2020-10-11 11:48] LABS: BASO % 0.5 % (0-2.0); EOS % 0.6 % (0-4.5); HEMATOCRIT 39.3 % (35.4-49); HEMOGLOBIN 12.9 GM/dL (11.7-16.9); LYMPH % 22.1 % (8-40); MCH 31.2 pg (25.7-33.7); MCHC 32.8 g/dl (32.0-35.9); MEAN CELL VOLUME 95.1 fl (80-96); MEAN PLT VOLUME 9.3 fl (7.5-11.1); MONO % 9.1 % (3.8-10.2); NEUT % 67.7 % (42.8-82.8); PLATELET COUNT 171 10^3/uL (134-434); RBC 4.13 M/mm3 (4.00-5.60); RDW 13.2 % (11.9-15.9); WHITE BLOOD COUNT 6.4 K/mm3 (4.0-10.0)
[2020-10-11 12:09] LABS: CHLORIDE 110 mmol/L (98-107); SODIUM 140 mmol/L (136-145)
[2020-10-11 12:11] LABS: ALBUMIN 3.9 g/dl (3.4-5.0); CALCIUM 8.9 mg/dL (8.5-10.1); CO2 23 mmol/L (21-32)
[2020-10-11 12:12] LABS: BLOOD UREA NITROGEN 20.6 mg/dL (7-18); GLUCOSE,RANDOM 98 mg/dL (74-106)
[2020-10-11 12:15] LABS: SGOT/AST 59 U/L (15-37)
[2020-10-11 12:16] LABS: BILIRUBIN,TOTAL 0.9 mg/dL (0.2-1); SGPT/ALT 33 U/L (13-61); TOT PROT 7.1 g/dl (6.4-8.2)
[2020-10-11 12:17] LABS: ALK PHOS 80 U/L (45-117); ANION GAP 7 MMOL/L (8-16)
[2020-10-11 12:25] LABS: ERYTHROCYTE SEDIMENTATION RATE 19 mm/hr (0-20)
[2020-10-11 13:28] LABS: CHLORIDE 109 mmol/L (98-107); SODIUM 139 mmol/L (136-145)
[2020-10-11 13:30] LABS: ALBUMIN 3.6 g/dl (3.4-5.0); BLOOD UREA NITROGEN 20.6 mg/dL (7-18); CALCIUM 8.7 mg/dL (8.5-10.1); CO2 24 mmol/L (21-32); GLUCOSE,RANDOM 97 mg/dL (74-106)
[2020-10-11 13:33] LABS: CREATININE 0.9 mg/dL (0.55-1.3); SGOT/AST 56 U/L (15-37); SGPT/ALT 32 U/L (13-61)
[2020-10-11 13:35] LABS: BILIRUBIN,TOTAL 0.9 mg/dL (0.2-1); TOT PROT 6.6 g/dl (6.4-8.2)
[2020-10-11 13:36] LABS: ALK PHOS 76 U/L (45-117)
[2020-10-11 13:37] LABS: ANION GAP 6 MMOL/L (8-16)
[2020-10-11 14:04] LABS: INR 2.35 (0.83-1.09); PROTHROMBIN TIME (PATIENT) 28.2 SEC (9.7-13.0)
[2020-10-11 14:07] LABS: ACTIVATED PTT 41.1 SECONDS (25.2-36.5)
[2020-10-11 14:24] LABS: CALCIUM 8.8 mg/dL (8.5-10.1)
[2020-10-11 14:25] LABS: ALBUMIN 3.8 g/dl (3.4-5.0); BLOOD UREA NITROGEN 19.4 mg/dL (7-18)
[2020-10-11 14:29] LABS: BILIRUBIN,TOTAL 0.8 mg/dL (0.2-1); TOT PROT 6.7 g/dl (6.4-8.2)
[2020-10-11] MEDS ORDERED: PIPERACILLIN/TAZOB 4.5 GM 4.5 GM in DEXTROSE 5%-WATER 100 ML IVPB ONE (14:47)
[2020-10-11] MEDS ORDERED: ACETAMINOPHEN 325 MG TABLET (FP) PO PRN (15:37)
[2020-10-11] MEDS ORDERED: ONDANSETRON 4 MG/2 ML VIAL IVPUSH PRN ×3 (15:39→18:48)
[2020-10-11] MEDS ORDERED: traMADol HCL 50 MG TABLET PO PRN (15:41)
[2020-10-11] MEDS ORDERED: SENNOSIDES 8.6MG TABLET (FP) PO PRN ×2 (15:55→18:24)
[2020-10-11] MEDS ORDERED: DOCUSATE SODIUM 100 MG CAPSULE (FP) PO PRN ×2 (15:55→18:24)
[2020-10-11] MEDS ORDERED: PROPOFOL 20 ML ONE ×2 (17:04→17:46)
[2020-10-11] MEDS ORDERED: SUCCINYLCHOLINE CHLORIDE 200 MG/10 ML SYRINGE ONE (17:04)
[2020-10-11] MEDS ORDERED: KETAMINE HCL 200 MG/20 ML VIAL ONE (17:05)
[2020-10-11] MEDS ORDERED: MIDAZOLAM HCL 2 MG/2 ML SINGLE DOSE VIAL ONE (17:05)
[2020-10-11] MEDS ORDERED: LIDOCAINE HCL/PF 2% SDV 5ML VIAL ONE (17:06)
[2020-10-11] MEDS ORDERED: ACETAMINOPHEN INJECTION 100 ML IVPB ONE (17:31)
[2020-10-11] MEDS ORDERED: RIVAROXABAN 10 MG TABLET PO SCH (18:00)
[2020-10-11] MEDS ORDERED: LIDOCAINE HCL 1%, 10 MG/ML (20ML VIAL) INF ONE (18:17)
[2020-10-11] MEDS ORDERED: PROMETHAZINE HCL 25 MG/1 ML VIAL IVPUSH PRN (18:48)
[2020-10-11] MEDS ORDERED: PIPERACILLIN/TAZOB 3.375 GM 3.375 GM in DEXTROSE 5%-WATER - 50 ML IVPB SCH ×3 (21:00)
[2020-10-11] MEDS ORDERED: PIPERACILLIN/TAZOBACTAM 3.375 GM VIAL IVPB ONE (21:19)
[2020-10-11] MEDS ORDERED: DEXTROSE 5%-WATER - 50 ML IVPB ONE (21:20)
[2020-10-11] MEDS: LACTATED RINGERS SOLUTION 1,000 ML IV SCH (21:28)
[2020-10-11] MEDS: PIPERACILLIN/TAZOB 3.375 GM 3.375 GM in DEXTROSE 5%-WATER - 50 ML IVPB SCH (21:30)
[2020-10-11] MEDS: TAMSULOSIN HCL 0.4 MG CAP PO SCH (21:31)
[2020-10-11] MEDS: traMADol HCL 50 MG TABLET PO PRN (21:37)
[2020-10-11] MEDS ORDERED: TAMSULOSIN HCL 0.4 MG CAP PO SCH (22:00)
[2020-10-11 22:36] VITALS: BMI 25.5
[2020-10-12] MEDS: LACTATED RINGERS SOLUTION 1,000 ML IV SCH (00:40)
[2020-10-12] MEDS ORDERED: PIPERACILLIN/TAZOBACTAM 3.375 GM VIAL IVPB ONE ×2 (01:46→10:55)
[2020-10-12] MEDS ORDERED: DEXTROSE 5%-WATER - 50 ML IVPB ONE ×3 (01:47→18:26)
[2020-10-12] MEDS: PIPERACILLIN/TAZOB 3.375 GM 3.375 GM in DEXTROSE 5%-WATER - 50 ML IVPB SCH ×2 (02:31→10:18)
[2020-10-12] MEDS: TAMSULOSIN HCL 0.4 MG CAP PO SCH ×2 (08:18→21:15)
[2020-10-12 09:33] LABS: BASO % 0.6 % (0-2.0); EOS % 1.2 % (0-4.5); HEMATOCRIT 39.1 % (35.4-49); HEMOGLOBIN 12.7 GM/dL (11.7-16.9); LYMPH % 20.5 % (8-40); MCH 30.8 pg (25.7-33.7); MCHC 32.5 g/dl (32.0-35.9); MEAN CELL VOLUME 94.6 fl (80-96); MONO % 9.1 % (3.8-10.2); NEUT % 68.6 % (42.8-82.8); PLATELET COUNT 157 10^3/uL (134-434); RBC 4.13 M/mm3 (4.00-5.60); RDW 12.9 % (11.9-15.9); WHITE BLOOD COUNT 6.8 K/mm3 (4.0-10.0)
[2020-10-12 09:56] LABS: ALBUMIN 3.3 g/dl (3.4-5.0); BLOOD UREA NITROGEN 17.1 mg/dL (7-18); CALCIUM 8.7 mg/dL (8.5-10.1); MAGNESIUM 2.2 mg/dL (1.8-2.4)
[2020-10-12 09:59] LABS: PHOSPHOROUS 3.9 mg/dL (2.5-4.9)
[2020-10-12 10:00] LABS: BILIRUBIN,TOTAL 1.4 mg/dL (0.2-1); TOT PROT 6.2 g/dl (6.4-8.2)
[2020-10-12] MEDS ORDERED: FUROSEMIDE 20 MG TABLET (FP) PO SCH (10:00)
[2020-10-12] MEDS ORDERED: POLYETHYLENE GLYCOL (HEALTHYLAX) 3350 17 GM PACKET PO SCH (10:00)
[2020-10-12] MEDS ORDERED: ENOXAPARIN NA (PORCINE) 40 MG/0.4 ML DISP.SYRIN SQ SCH (10:00)
[2020-10-12] MEDS ORDERED: LOSARTAN POTASSIUM 50 MG TABLET PO SCH (10:00)
[2020-10-12] MEDS ORDERED: DUTASTERIDE 0.5 MG CAP (FP) PO SCH (10:00)
[2020-10-12] MEDS: FUROSEMIDE 20 MG TABLET (FP) PO SCH (11:17)
[2020-10-12] MEDS: traMADol HCL 50 MG TABLET PO PRN ×2 (11:17→21:18)
[2020-10-12] MEDS: DUTASTERIDE 0.5 MG CAP (FP) PO SCH (11:18)
[2020-10-12] MEDS: LOSARTAN POTASSIUM 50 MG TABLET PO SCH (11:19)
[2020-10-12] MEDS: POLYETHYLENE GLYCOL (HEALTHYLAX) 3350 17 GM PACKET PO SCH (11:19)
[2020-10-12] MEDS ORDERED: ceFAZolin SODIUM 1 GM VIAL ONE (18:26)
[2020-10-12] MEDS: CEFAZOLIN 1 GM in DEXTROSE 5%-WATER - 50 ML IVPB SCH (18:28)
[2020-10-12] MEDS: RIVAROXABAN 10 MG TABLET PO SCH (18:28)
[2020-10-13] MEDS ORDERED: ceFAZolin SODIUM 1 GM VIAL ONE ×3 (01:16→17:09)
[2020-10-13] MEDS ORDERED: DEXTROSE 5%-WATER - 50 ML IVPB ONE ×3 (01:16→17:09)
[2020-10-13] MEDS: CEFAZOLIN 1 GM in DEXTROSE 5%-WATER - 50 ML IVPB SCH ×3 (01:18→17:11)
[2020-10-13] MEDS: TAMSULOSIN HCL 0.4 MG CAP PO SCH ×2 (08:05→21:14)
[2020-10-13] MEDS: traMADol HCL 50 MG TABLET PO PRN ×2 (10:49→18:34)
[2020-10-13] MEDS: DUTASTERIDE 0.5 MG CAP (FP) PO SCH (10:52)
[2020-10-13] MEDS: FUROSEMIDE 20 MG TABLET (FP) PO SCH (10:52)
[2020-10-13] MEDS: LOSARTAN POTASSIUM 50 MG TABLET PO SCH (10:52)
[2020-10-13] MEDS: POLYETHYLENE GLYCOL (HEALTHYLAX) 3350 17 GM PACKET PO SCH (10:52)
[2020-10-13 12:47] LABS: BASO % 0.3 % (0-2.0); EOS % 0.8 % (0-4.5); HEMATOCRIT 38.1 % (35.4-49); HEMOGLOBIN 12.6 GM/dL (11.7-16.9); LYMPH % 19.5 % (8-40); MCH 31.2 pg (25.7-33.7); MCHC 33.2 g/dl (32.0-35.9); MEAN CELL VOLUME 94.1 fl (80-96); MEAN PLT VOLUME 8.8 fl (7.5-11.1); MONO % 12.7 % (3.8-10.2); NEUT % 66.7 % (42.8-82.8); PLATELET COUNT 174 10^3/uL (134-434); RBC 4.04 M/mm3 (4.00-5.60); RDW 12.7 % (11.9-15.9); WHITE BLOOD COUNT 6.8 K/mm3 (4.0-10.0)
[2020-10-13 13:09] LABS: BLOOD UREA NITROGEN 15.9 mg/dL (7-18); CALCIUM 8.5 mg/dL (8.5-10.1)
[2020-10-13 13:10] LABS: ALBUMIN 3.1 g/dl (3.4-5.0)
[2020-10-13 13:14] LABS: BILIRUBIN,TOTAL 0.5 mg/dL (0.2-1); TOT PROT 6.1 g/dl (6.4-8.2)
[2020-10-13] MEDS: RIVAROXABAN 10 MG TABLET PO SCH (17:11)
[2020-10-14] MEDS ORDERED: DEXTROSE 5%-WATER - 50 ML IVPB ONE ×3 (01:10→16:58)
[2020-10-14] MEDS ORDERED: ceFAZolin SODIUM 1 GM VIAL ONE ×3 (01:10→16:58)
[2020-10-14] MEDS: CEFAZOLIN 1 GM in DEXTROSE 5%-WATER - 50 ML IVPB SCH ×3 (01:49→17:02)
[2020-10-14] MEDS: traMADol HCL 50 MG TABLET PO PRN ×2 (05:53→14:12)
[2020-10-14 08:34] LABS: BASO % 0.6 % (0-2.0); EOS % 2.9 % (0-4.5); HEMATOCRIT 40.4 % (35.4-49); HEMOGLOBIN 13.2 GM/dL (11.7-16.9); LYMPH % 30.8 % (8-40); MCH 30.8 pg (25.7-33.7); MCHC 32.6 g/dl (32.0-35.9); MEAN CELL VOLUME 94.6 fl (80-96); MEAN PLT VOLUME 8.9 fl (7.5-11.1); MONO % 13.6 % (3.8-10.2); NEUT % 52.1 % (42.8-82.8); PLATELET COUNT 195 10^3/uL (134-434); RBC 4.27 M/mm3 (4.00-5.60)
[2020-10-14] MEDS: TAMSULOSIN HCL 0.4 MG CAP PO SCH ×2 (09:02→21:36)
[2020-10-14 09:04] LABS: ALBUMIN 3.1 g/dl (3.4-5.0); BLOOD UREA NITROGEN 14.8 mg/dL (7-18); CALCIUM 8.4 mg/dL (8.5-10.1)
[2020-10-14] MEDS: POLYETHYLENE GLYCOL (HEALTHYLAX) 3350 17 GM PACKET PO SCH (09:04)
[2020-10-14] MEDS: LOSARTAN POTASSIUM 50 MG TABLET PO SCH (09:04)
[2020-10-14] MEDS: DUTASTERIDE 0.5 MG CAP (FP) PO SCH (09:04)
[2020-10-14] MEDS: FUROSEMIDE 20 MG TABLET (FP) PO SCH (09:04)
[2020-10-14 09:07] LABS: CREATININE 0.9 mg/dL (0.55-1.3)
[2020-10-14 09:09] LABS: TOT PROT 6.3 g/dl (6.4-8.2)
[2020-10-14] MEDS: RIVAROXABAN 10 MG TABLET PO SCH (17:02)
[2020-10-15] MEDS ORDERED: DEXTROSE 5%-WATER - 50 ML IVPB ONE ×3 (01:34→17:18)
[2020-10-15] MEDS ORDERED: ceFAZolin SODIUM 1 GM VIAL ONE ×3 (01:34→17:18)
[2020-10-15] MEDS: CEFAZOLIN 1 GM in DEXTROSE 5%-WATER - 50 ML IVPB SCH ×3 (01:48→18:14)
[2020-10-15] MEDS: TAMSULOSIN HCL 0.4 MG CAP PO SCH ×2 (09:17→21:20)
[2020-10-15] MEDS: traMADol HCL 50 MG TABLET PO PRN ×2 (09:17→21:20)
[2020-10-15] MEDS: DUTASTERIDE 0.5 MG CAP (FP) PO SCH (09:18)
[2020-10-15] MEDS: POLYETHYLENE GLYCOL (HEALTHYLAX) 3350 17 GM PACKET PO SCH (09:18)
[2020-10-15] MEDS: LOSARTAN POTASSIUM 50 MG TABLET PO SCH (09:18)
[2020-10-15] MEDS: FUROSEMIDE 20 MG TABLET (FP) PO SCH (09:18)
[2020-10-15] MEDS: ACETAMINOPHEN 325 MG TABLET (FP) PO PRN (12:09)
[2020-10-15] MEDS: RIVAROXABAN 10 MG TABLET PO SCH (18:14)
[2020-10-16] MEDS ORDERED: ceFAZolin SODIUM 1 GM VIAL ONE ×3 (01:17→17:24)
[2020-10-16] MEDS ORDERED: DEXTROSE 5%-WATER - 50 ML IVPB ONE ×3 (01:17→17:25)
[2020-10-16] MEDS: CEFAZOLIN 1 GM in DEXTROSE 5%-WATER - 50 ML IVPB SCH ×3 (01:30→17:28)
[2020-10-16] MEDS: ACETAMINOPHEN 325 MG TABLET (FP) PO PRN ×2 (07:46→14:51)
[2020-10-16 08:22] LABS: BASO % 0.7 % (0-2.0); EOS % 3.7 % (0-4.5); HEMOGLOBIN 13.4 GM/dL (11.7-16.9); LYMPH % 33.5 % (8-40); MCHC 32.6 g/dl (32.0-35.9); MEAN PLT VOLUME 8.7 fl (7.5-11.1); MONO % 11.3 % (3.8-10.2); NEUT % 50.8 % (42.8-82.8); PLATELET COUNT 227 10^3/uL (134-434); RBC 4.31 M/mm3 (4.00-5.60); RDW 13.1 % (11.9-15.9); WHITE BLOOD COUNT 6.8 K/mm3 (4.0-10.0)
[2020-10-16] MEDS: TAMSULOSIN HCL 0.4 MG CAP PO SCH (08:40)
[2020-10-16 08:41] LABS: ALBUMIN 2.8 g/dl (3.4-5.0); CALCIUM 8.4 mg/dL (8.5-10.1)
[2020-10-16 08:43] LABS: BLOOD UREA NITROGEN 16.8 mg/dL (7-18); MAGNESIUM 2.2 mg/dL (1.8-2.4)
[2020-10-16 08:46] LABS: BILIRUBIN,TOTAL 0.6 mg/dL (0.2-1); CREATININE 0.9 mg/dL (0.55-1.3); PHOSPHOROUS 3.1 mg/dL (2.5-4.9); TOT PROT 6.2 g/dl (6.4-8.2)
[2020-10-16] MEDS: FUROSEMIDE 20 MG TABLET (FP) PO SCH (09:39)
[2020-10-16] MEDS: DUTASTERIDE 0.5 MG CAP (FP) PO SCH (09:39)
[2020-10-16] MEDS: POLYETHYLENE GLYCOL (HEALTHYLAX) 3350 17 GM PACKET PO SCH (09:39)
[2020-10-16] MEDS: LOSARTAN POTASSIUM 50 MG TABLET PO SCH (09:42)
[2020-10-16] MEDS: RIVAROXABAN 10 MG TABLET PO SCH (17:29)
[2020-10-16 18:07] VITALS: BP 130/76; PULSE 53; TEMP 98.9
== END 2020-10-16 19:54 | DRG 603 ==
LOC: JER 10:17 → JERBED 11:45 → J5S 20:00 → UNDODISIN 10-13 01:00 → J5S 10-13 13:45
PROVIDERS: ATTEND Internal Medicine
PROC: 0Y9K0ZX Drainage of Right Ankle Region, Open Approach, Diagnostic (ICD-10-PCS; principal; 2020-10-11 16:00)
PROC: 02HV33Z Insertion of Infusion Device into Superior Vena Cava, Percutaneous Approach (ICD-10-PCS; 2020-10-16)
PROC: B518ZZA Fluoroscopy of Superior Vena Cava, Guidance (ICD-10-PCS; 2020-10-16)
DX: L03.115 Cellulitis of right lower limb (principal); L02.415 Cutaneous abscess of right lower limb; I10 Essential (primary) hypertension; N40.1 Benign prostatic hyperplasia with lower urinary tract symptoms; I48.91 Unspecified atrial fibrillation; M65.9 Synovitis and tenosynovitis, unspecified; K21.9 Gastro-esophageal reflux disease without esophagitis; B95.61 Methicillin susceptible Staphylococcus aureus infection as the cause of diseases classified elsewhere
CPT/HCPCS: 36415; 36569; 73610-TC-RT-FY; 73630-TC-RT-FY; 73718-TC-RT; 80053; 83735; 84100; 85025; 85610; 85651; 85730; 86140; 86850; 86900; 86901; 87040; 87070; 87186; 87205; 88304-TC; 93005; 93010; 94010; 94760; 97116-GP; 97162-GP; 99285-25; C9803; J0131; U0003; U0005

== ENCOUNTER 2020-11-21 08:27 | Inpatient (IN) | payer OTHER ==
[2020-11-21 10:33] LABS: BASO % 0.7 % (0-2.0); EOS % 5.6 % (0-4.5); HEMATOCRIT 40.7 % (35.4-49); HEMOGLOBIN 13.7 GM/dL (11.7-16.9); LYMPH % 24.5 % (8-40); MCH 31.1 pg (25.7-33.7); MCHC 33.7 g/dl (32.0-35.9); MEAN CELL VOLUME 92.3 fl (80-96); MEAN PLT VOLUME 8.4 fl (7.5-11.1); MONO % 6.5 % (3.8-10.2); NEUT % 62.7 % (42.8-82.8); PLATELET COUNT 216 10^3/uL (134-434); RBC 4.41 M/mm3 (4.00-5.60); RDW 13.6 % (11.9-15.9); WHITE BLOOD COUNT 7.4 K/mm3 (4.0-10.0)
[2020-11-21 10:40] LABS: INR 1.7 (0.83-1.09); PROTHROMBIN TIME (PATIENT) 20.6 SEC (9.7-13.0)
[2020-11-21 11:00] LABS: CHLORIDE 104 mmol/L (98-107); SODIUM 141 mmol/L (136-145)
[2020-11-21 11:02] LABS: CALCIUM 9.1 mg/dL (8.5-10.1)
[2020-11-21 11:03] LABS: ALBUMIN 3.8 g/dl (3.4-5.0); ANION GAP 10 MMOL/L (8-16); BLOOD UREA NITROGEN 15.1 mg/dL (7-18); CO2 27 mmol/L (21-32); GLUCOSE,RANDOM 115 mg/dL (74-106)
[2020-11-21 11:06] LABS: CREATININE 1.1 mg/dL (0.55-1.3); SGOT/AST 28 U/L (15-37); SGPT/ALT 29 U/L (13-61)
[2020-11-21 11:07] LABS: BILIRUBIN,TOTAL 0.6 mg/dL (0.2-1); TOT PROT 7.4 g/dl (6.4-8.2)
[2020-11-21 11:09] LABS: ALK PHOS 81 U/L (45-117)
[2020-11-21 11:28] LABS: ERYTHROCYTE SEDIMENTATION RATE 16 mm/hr (0-20)
[2020-11-21] MEDS ORDERED: VANCOMYCIN/WATER 1,250 MG/250 ML BAG IVPB ONE (11:35)
[2020-11-21] MEDS ORDERED: PT OWN MED DRAWER 7, Y5N ONE (12:26)
[2020-11-21] MEDS: TAMSULOSIN HCL 0.4 MG CAP PO SCH (22:44)
[2020-11-21] MEDS: HEPARIN NA (PORCINE) 5,000 UNITS/ML 1ML VIAL SQ SCH (22:44)
[2020-11-22] MEDS: HEPARIN NA (PORCINE) 5,000 UNITS/ML 1ML VIAL SQ SCH ×3 (06:57→21:20)
[2020-11-22 08:36] VITALS: BMI 24.6
[2020-11-22] MEDS: TAMSULOSIN HCL 0.4 MG CAP PO SCH ×2 (09:11→21:20)
[2020-11-22] MEDS: DUTASTERIDE 0.5 MG CAP (FP) PO SCH (09:11)
[2020-11-22] MEDS: LOSARTAN POTASSIUM 50 MG TABLET PO SCH (09:11)
[2020-11-22 09:14] LABS: HEMATOCRIT 40.8 % (35.4-49); MCH 31.5 pg (25.7-33.7); MCHC 34.3 g/dl (32.0-35.9); MEAN CELL VOLUME 91.7 fl (80-96); MEAN PLT VOLUME 8.2 fl (7.5-11.1); PLATELET COUNT 215 10^3/uL (134-434); RBC 4.45 M/mm3 (4.00-5.60); RDW 13.3 % (11.9-15.9); WHITE BLOOD COUNT 6.1 K/mm3 (4.0-10.0)
[2020-11-22 09:44] LABS: BLOOD UREA NITROGEN 15.6 mg/dL (7-18)
[2020-11-22 09:45] LABS: CALCIUM 8.9 mg/dL (8.5-10.1); MAGNESIUM 2.1 mg/dL (1.8-2.4)
[2020-11-22 09:49] LABS: PHOSPHOROUS 3.7 mg/dL (2.5-4.9)
[2020-11-22 09:56] LABS: ANISOCYTOSIS 0; HELMET CELLS 0; HOWELL-JOLLY BODIES 0; MACROCYTOSIS 0; OVALOCYTE 0; PLATELET ESTIMATE NORMAL; ROULEAU 0; SICKELED CELLS 0; TARGET CELLS 0; TEAR DROP CELLS 0; TOXIC GRANULATION 0
[2020-11-22] MEDS: SODIUM HYPOCHLORITE 0.25%- 473 ML BULK BOTTLE TP SCH (13:00)
[2020-11-22] MEDS: CEFAZOLIN 1 GM/D5W 1 GM/50 ML BAG IVPB SCH ×2 (13:09→17:49)
[2020-11-22] MEDS: MUPIROCIN 2% TOPICAL OINTMENT 22 GM TUBE TP SCH (21:20)
[2020-11-23] MEDS: CEFAZOLIN 1 GM/D5W 1 GM/50 ML BAG IVPB SCH ×3 (01:33→18:24)
[2020-11-23] MEDS: HEPARIN NA (PORCINE) 5,000 UNITS/ML 1ML VIAL SQ SCH ×2 (06:17→18:06)
[2020-11-23 09:35] LABS: HEMATOCRIT 37.9 % (35.4-49); HEMOGLOBIN 12.8 GM/dL (11.7-16.9); MCH 31.2 pg (25.7-33.7); MCHC 33.7 g/dl (32.0-35.9); MEAN CELL VOLUME 92.6 fl (80-96); MEAN PLT VOLUME 8.6 fl (7.5-11.1); PLATELET COUNT 190 10^3/uL (134-434); RBC 4.09 M/mm3 (4.00-5.60); RDW 13.6 % (11.9-15.9); WHITE BLOOD COUNT 5.5 K/mm3 (4.0-10.0)
[2020-11-23 09:48] LABS: BLOOD UREA NITROGEN 15.6 mg/dL (7-18); CALCIUM 8.4 mg/dL (8.5-10.1); MAGNESIUM 2.1 mg/dL (1.8-2.4)
[2020-11-23 09:52] LABS: CREATININE 1.1 mg/dL (0.55-1.3); PHOSPHOROUS 3.8 mg/dL (2.5-4.9)
[2020-11-23 09:53] LABS: BILIRUBIN,TOTAL 1.2 mg/dL (0.2-1); TOT PROT 6.1 g/dl (6.4-8.2)
[2020-11-23] MEDS: TAMSULOSIN HCL 0.4 MG CAP PO SCH ×2 (10:00→21:30)
[2020-11-23] MEDS: LOSARTAN POTASSIUM 50 MG TABLET PO SCH (10:00)
[2020-11-23] MEDS: DUTASTERIDE 0.5 MG CAP (FP) PO SCH (10:00)
[2020-11-23] MEDS: MUPIROCIN 2% TOPICAL OINTMENT 22 GM TUBE TP SCH ×2 (10:00→21:30)
[2020-11-23] MEDS: SODIUM HYPOCHLORITE 0.25%- 473 ML BULK BOTTLE TP SCH (10:01)
[2020-11-23] MEDS ORDERED: ACETAMINOPHEN 325 MG TABLET (FP) PO PRN (19:25)
[2020-11-23] MEDS: RIVAROXABAN 20 MG TABLET PO SCH (20:10)
[2020-11-24] MEDS: CEFAZOLIN 1 GM/D5W 1 GM/50 ML BAG IVPB SCH ×2 (02:05→09:15)
[2020-11-24 08:51] LABS: HEMATOCRIT 40.1 % (35.4-49); HEMOGLOBIN 13.6 GM/dL (11.7-16.9); MCH 31.1 pg (25.7-33.7); MCHC 33.8 g/dl (32.0-35.9); MEAN PLT VOLUME 8.3 fl (7.5-11.1); PLATELET COUNT 207 10^3/uL (134-434); RBC 4.36 M/mm3 (4.00-5.60); RDW 13.9 % (11.9-15.9); WHITE BLOOD COUNT 5.4 K/mm3 (4.0-10.0)
[2020-11-24 09:09] LABS: CALCIUM 8.7 mg/dL (8.5-10.1)
[2020-11-24 09:14] LABS: CREATININE 1.1 mg/dL (0.55-1.3)
[2020-11-24] MEDS: traMADol HCL 50 MG TABLET PO PRN (09:15)
[2020-11-24] MEDS: TAMSULOSIN HCL 0.4 MG CAP PO SCH ×2 (09:16→21:48)
[2020-11-24] MEDS: DUTASTERIDE 0.5 MG CAP (FP) PO SCH (09:16)
[2020-11-24] MEDS: SODIUM HYPOCHLORITE 0.25%- 473 ML BULK BOTTLE TP SCH (09:17)
[2020-11-24] MEDS: MUPIROCIN 2% TOPICAL OINTMENT 22 GM TUBE TP SCH (09:17)
[2020-11-24] MEDS: LOSARTAN POTASSIUM 50 MG TABLET PO SCH (09:20)
[2020-11-24 09:51] LABS: ANISOCYTOSIS 0; HELMET CELLS 0; HOWELL-JOLLY BODIES 0; MACROCYTOSIS 0; OVALOCYTE 0; PLATELET ESTIMATE NORMAL; ROULEAU 0; SICKELED CELLS 0; TARGET CELLS 0; TEAR DROP CELLS 0; TOXIC GRANULATION 0
[2020-11-24] MEDS ORDERED: DEXTROSE 5%-WATER - 50 ML IVPB ONE ×2 (11:08→18:36)
[2020-11-24] MEDS ORDERED: PIPERACILLIN/TAZOBACTAM 3.375 GM VIAL IVPB ONE ×2 (11:08→18:35)
[2020-11-24] MEDS ORDERED: PIPERACILLIN/TAZOB 3.375 GM 3.375 GM in DEXTROSE 5%-WATER - 50 ML IVPB SCH (11:15)
[2020-11-24] MEDS: FLUCONAZOLE 40 MG/ML SUSPENSION PO SCH ×2 (17:17→17:18)
[2020-11-24] MEDS: PIPERACILLIN/TAZOB 3.375 GM 3.375 GM in DEXTROSE 5%-WATER - 50 ML IVPB SCH (18:54)
[2020-11-24] MEDS: RIVAROXABAN 20 MG TABLET PO SCH (18:54)
[2020-11-25] MEDS ORDERED: PIPERACILLIN/TAZOBACTAM 3.375 GM VIAL IVPB ONE ×3 (01:04→17:51)
[2020-11-25] MEDS: PIPERACILLIN/TAZOB 3.375 GM 3.375 GM in DEXTROSE 5%-WATER - 50 ML IVPB SCH ×3 (01:12→17:54)
[2020-11-25 08:46] LABS: CALCIUM 8.3 mg/dL (8.5-10.1)
[2020-11-25 08:47] LABS: BLOOD UREA NITROGEN 16.8 mg/dL (7-18)
[2020-11-25 08:50] LABS: CREATININE 1.2 mg/dL (0.55-1.3)
[2020-11-25] MEDS ORDERED: DEXTROSE 5%-WATER - 50 ML IVPB ONE (09:06)
[2020-11-25] MEDS ORDERED: PT OWN MED DRAWER 7, Y5N ONE (09:06)
[2020-11-25] MEDS: DUTASTERIDE 0.5 MG CAP (FP) PO SCH (09:09)
[2020-11-25] MEDS: LOSARTAN POTASSIUM 50 MG TABLET PO SCH (09:09)
[2020-11-25] MEDS: TAMSULOSIN HCL 0.4 MG CAP PO SCH ×2 (09:09→21:02)
[2020-11-25] MEDS: FUROSEMIDE 20 MG TABLET (FP) PO SCH (09:09)
[2020-11-25] MEDS: FLUCONAZOLE 40 MG/ML SUSPENSION PO SCH (09:10)
[2020-11-25] MEDS: SODIUM HYPOCHLORITE 0.25%- 473 ML BULK BOTTLE TP SCH (13:52)
[2020-11-25] MEDS: RIVAROXABAN 20 MG TABLET PO SCH (17:53)
[2020-11-26] MEDS ORDERED: PIPERACILLIN/TAZOBACTAM 3.375 GM VIAL IVPB ONE ×3 (01:50→18:15)
[2020-11-26] MEDS ORDERED: DEXTROSE 5%-WATER - 50 ML IVPB ONE ×3 (01:51→18:15)
[2020-11-26] MEDS: PIPERACILLIN/TAZOB 3.375 GM 3.375 GM in DEXTROSE 5%-WATER - 50 ML IVPB SCH ×3 (02:00→18:19)
[2020-11-26 08:45] LABS: HEMATOCRIT 39.3 % (35.4-49); HEMOGLOBIN 13.4 GM/dL (11.7-16.9); MCH 31.3 pg (25.7-33.7); MCHC 34.1 g/dl (32.0-35.9); MEAN PLT VOLUME 8.3 fl (7.5-11.1); PLATELET COUNT 196 10^3/uL (134-434); RBC 4.27 M/mm3 (4.00-5.60); RDW 13.8 % (11.9-15.9); WHITE BLOOD COUNT 6.4 K/mm3 (4.0-10.0)
[2020-11-26] MEDS ORDERED: PT OWN MED DRAWER 7, Y5N ONE (09:05)
[2020-11-26 09:12] LABS: ALBUMIN 3.1 g/dl (3.4-5.0); CALCIUM 8.5 mg/dL (8.5-10.1); MAGNESIUM 2.4 mg/dL (1.8-2.4)
[2020-11-26] MEDS: LOSARTAN POTASSIUM 50 MG TABLET PO SCH (09:12)
[2020-11-26] MEDS: TAMSULOSIN HCL 0.4 MG CAP PO SCH ×2 (09:12→21:19)
[2020-11-26] MEDS: DUTASTERIDE 0.5 MG CAP (FP) PO SCH (09:12)
[2020-11-26] MEDS: FUROSEMIDE 20 MG TABLET (FP) PO SCH (09:12)
[2020-11-26 09:13] LABS: BLOOD UREA NITROGEN 17.4 mg/dL (7-18)
[2020-11-26] MEDS: FLUCONAZOLE 40 MG/ML SUSPENSION PO SCH (09:13)
[2020-11-26 09:15] LABS: PHOSPHOROUS 4.2 mg/dL (2.5-4.9)
[2020-11-26 09:16] LABS: BILIRUBIN,TOTAL 0.7 mg/dL (0.2-1)
[2020-11-26] MEDS ORDERED: LIDOCAINE HCL 1%, 10 MG/ML (50 mL VIAL) SQ ONE (11:31)
[2020-11-26] MEDS: SODIUM HYPOCHLORITE 0.25%- 473 ML BULK BOTTLE TP SCH (11:45)
[2020-11-26] MEDS: RIVAROXABAN 20 MG TABLET PO SCH (18:19)
[2020-11-27] MEDS ORDERED: DEXTROSE 5%-WATER - 50 ML IVPB ONE ×3 (01:35→17:31)
[2020-11-27] MEDS ORDERED: PIPERACILLIN/TAZOBACTAM 3.375 GM VIAL IVPB ONE ×3 (01:35→17:31)
[2020-11-27] MEDS: PIPERACILLIN/TAZOB 3.375 GM 3.375 GM in DEXTROSE 5%-WATER - 50 ML IVPB SCH ×3 (01:59→17:50)
[2020-11-27 08:48] LABS: HEMATOCRIT 40.6 % (35.4-49); HEMOGLOBIN 13.7 GM/dL (11.7-16.9); MCH 31.3 pg (25.7-33.7); MCHC 33.8 g/dl (32.0-35.9); MEAN CELL VOLUME 92.5 fl (80-96); MEAN PLT VOLUME 8.9 fl (7.5-11.1); PLATELET COUNT 202 10^3/uL (134-434); RBC 4.39 M/mm3 (4.00-5.60); WHITE BLOOD COUNT 5.7 K/mm3 (4.0-10.0)
[2020-11-27] MEDS ORDERED: PT OWN MED DRAWER 7, Y5N ONE (09:33)
[2020-11-27 09:36] LABS: ALBUMIN 3.1 g/dl (3.4-5.0); BLOOD UREA NITROGEN 15.4 mg/dL (7-18); MAGNESIUM 2.3 mg/dL (1.8-2.4)
[2020-11-27 09:39] LABS: CREATININE 1.1 mg/dL (0.55-1.3)
[2020-11-27 09:40] LABS: BILIRUBIN,TOTAL 0.6 mg/dL (0.2-1); TOT PROT 6.5 g/dl (6.4-8.2)
[2020-11-27] MEDS: LOSARTAN POTASSIUM 50 MG TABLET PO SCH (10:45)
[2020-11-27] MEDS: TAMSULOSIN HCL 0.4 MG CAP PO SCH ×2 (10:45→21:40)
[2020-11-27] MEDS: DUTASTERIDE 0.5 MG CAP (FP) PO SCH (10:45)
[2020-11-27] MEDS: FUROSEMIDE 20 MG TABLET (FP) PO SCH (10:45)
[2020-11-27] MEDS: SODIUM HYPOCHLORITE 0.25%- 473 ML BULK BOTTLE TP SCH (10:45)
[2020-11-27] MEDS: FLUCONAZOLE 40 MG/ML SUSPENSION PO SCH (10:46)
[2020-11-27] MEDS: traMADol HCL 50 MG TABLET PO PRN (10:51)
[2020-11-27] MEDS: RIVAROXABAN 20 MG TABLET PO SCH (17:50)
[2020-11-28] MEDS ORDERED: PIPERACILLIN/TAZOBACTAM 3.375 GM VIAL IVPB ONE ×2 (02:24→09:19)
[2020-11-28] MEDS ORDERED: DEXTROSE 5%-WATER - 50 ML IVPB ONE ×2 (02:25→09:19)
[2020-11-28] MEDS: PIPERACILLIN/TAZOB 3.375 GM 3.375 GM in DEXTROSE 5%-WATER - 50 ML IVPB SCH ×2 (02:26→09:41)
[2020-11-28] MEDS ORDERED: PT OWN MED DRAWER 7, Y5N ONE (09:19)
[2020-11-28] MEDS: DUTASTERIDE 0.5 MG CAP (FP) PO SCH (09:41)
[2020-11-28] MEDS: FUROSEMIDE 20 MG TABLET (FP) PO SCH (09:41)
[2020-11-28] MEDS: TAMSULOSIN HCL 0.4 MG CAP PO SCH (09:41)
[2020-11-28] MEDS: SODIUM HYPOCHLORITE 0.25%- 473 ML BULK BOTTLE TP SCH (09:41)
[2020-11-28] MEDS: FLUCONAZOLE 40 MG/ML SUSPENSION PO SCH (09:41)
[2020-11-28] MEDS: LOSARTAN POTASSIUM 50 MG TABLET PO SCH (09:41)
[2020-11-28] MEDS: traMADol HCL 50 MG TABLET PO PRN (13:40)
[2020-11-28 14:11] VITALS: BP 128/74; PULSE 52; TEMP 98.2
== END 2020-11-28 17:27 | DRG 603 ==
LOC: JER 08:27 → JERBED 13:32 → J6S 21:17
PROVIDERS: ADMIT Internal Medicine; ATTEND Internal Medicine
PROC: 0HBMXZX Excision of Right Foot Skin, External Approach, Diagnostic (ICD-10-PCS; principal; 2020-11-26)
DX: L03.115 Cellulitis of right lower limb (principal); L97.319 Non-pressure chronic ulcer of right ankle with unspecified severity; I10 Essential (primary) hypertension; N40.0 Benign prostatic hyperplasia without lower urinary tract symptoms; I48.91 Unspecified atrial fibrillation; Z79.01 Long term (current) use of anticoagulants; K21.9 Gastro-esophageal reflux disease without esophagitis; B96.5 Pseudomonas (aeruginosa) (mallei) (pseudomallei) as the cause of diseases classified elsewhere; M65.871 Other synovitis and tenosynovitis, right ankle and foot
CPT/HCPCS: 36415; 36569; 71045-TC-FY; 73610-TC-RT-FY; 73720-TC; 80048; 80053; 83036; 83735; 84100; 85025; 85027; 85610; 85651; 86140; 86850; 86900; 86901; 87040; 87070; 87186; 87205; 93005; 93010; 97116-GP; 97161-GP; 99285-25; A9579; C9803; J1644; U0003; U0005

== ENCOUNTER 2024-01-25 16:52 | Emergency (ER) | payer OTHER ==
[2024-01-25 17:10] VITALS: RESP 18; TEMP 97.6; BMI 27.1
[2024-01-25 18:00] VITALS: BP 130/64; PULSE 52
[2024-01-25] MEDS: OXYMETAZOLINE 0.05% NASAL SOLUTION 15 ML BOTTLE NS ONE (18:00)
[2024-01-25 18:03] LABS: BASO % 0.4 % (0-2.0); EOS % 0.4 % (0-4.5); HEMATOCRIT 38.8 % (35.4-49); LYMPH % 29.1 % (8-40); MCH 31.9 pg (25.7-33.7); MCHC 33.5 g/dl (32.0-35.9); MEAN CELL VOLUME 95.1 fl (80-96); MEAN PLT VOLUME 7.6 fl (7.5-11.1); MONO % 7.7 % (3.8-10.2); NEUT % 62.4 % (42.8-82.8); PLATELET COUNT 199 10^3/uL (134-434); RBC 4.08 M/mm3 (4.00-5.60); RDW 14.5 % (11.9-15.9); WHITE BLOOD COUNT 5.7 K/mm3 (4.0-10.0)
[2024-01-25 18:23] LABS: INR 1.18 (0.83-1.09); PROTHROMBIN TIME (PATIENT) 13.3 SEC (9.7-13.0)
[2024-01-25 18:26] LABS: ACTIVATED PTT 36.1 SECONDS (25.2-36.5)
[2024-01-25] MEDS: LABETALOL HCL 5 MG/1 ML (100MG/20 ML VIAL) IVPUSH ONE (18:26)
[2024-01-25 18:32] LABS: POTASSIUM 4.3 mmol/L (3.5-5.1)
[2024-01-25 18:33] LABS: CALCIUM 8.8 mg/dL (8.5-10.1)
[2024-01-25 18:34] LABS: BLOOD UREA NITROGEN 22.2 mg/dL (7-18)
[2024-01-25 18:37] LABS: CREATININE 1.1 mg/dL (0.55-1.3)
== END 2024-01-25 19:15 | disposition home or self-care (01) ==
LOC: JER 16:52
DX: R04.0 Epistaxis (principal)
CPT/HCPCS: 36415; 80048; 85025; 85610; 85730; 99283-25